=== PATIENT | male | born 1970 | race Caucasian/White ===

== ENCOUNTER 2016-08-05 13:52 | Emergency (ER) | payer OTHER ==
[~2016-08-05] VITALS: Ht 177.8 cm; Wt 130.0 kg
[~2016-08-05 13:52] MED LIST: ADVAIR 250/501 DISK IH; ALLERGY PLUS-S1 EACH PO; ALLERGY10 M1 PO; AMITRIPTYLINE H25 MG PO; ANESTACON10 ML MM; ANESTACON10 ML PR; ATROVENT 00.5 MG/2.5 IH; Ascorbic Acid,Ester- PO; BACLOFEN PUMP; BACLOFEN20 MG PO; BENADRYL25 MG PO; BISAC-EVAC10 MG RC; CEFTIN500 MG PO; COLACE100 MG PO; COLACE50 MG PO; COMPLETE MULTI1 EAC2 PO; CRANBERRY 4001 EAC1; CRANBERRY 4001 EAC1 PO; CRANBERRY PO; CRANBERRY400 M1 PO; CYMBALTA60 MG PO; Cipro PO; Colace PO; Cranberry Extract PO; Cranberry PO; DETROL1 MG PO; DITROPAN XL10 MG PO; DOCUSATE SODIU100 MG PO; Dulcolax PR; ENDOCET 10-3251 EACH PO; FIBER LAXATIVE625 M1 PO; FISH OIL CONC1 EACH PO; FISH OIL SOFTG1 EACH PO; FISH OIL300 MG PO; FISH OIL500 MG PO; FUROSEMIDE20 MG PO; Fish Oil PO; Flonase BOTH NARES; GABAPENTIN400 MG PO; GABAPENTIN800 MG PO; HIPREX1 GM PO; HUMALOG100 UNIT/1 SC; HUMALOG100 UNIT/2 SC; Habitrol,Nicoderm CQ TD; Keflex PO; LANTUS 10100 UNITS/; LANTUS 10100 UNITS/ SC; LANTUS 3 M100 UNITS1 SC; LASIX20 MG PO; LAXATIVE SUPPOS10 MG PR; LIORESAL I IT; LIORESAL5 MG; LIPITOR10 MG PO; LIPITOR20 MG PO; Lactinex,Floranex PO; Levaquin PO; Lioresal PO; Lotrimin Cream TP; MACROBID100 MG PO; MAGIC BULLET10 MG RC; MAGNESIUM DR64 M1 PO; METHENAMINE HIPP1 G1 PO; MUCINEX1200 MG PO; MULTI-VITAMIN1 EAC4 PO; MULTIVITAMIN1 EAC2 PO; Macrobid PO; Miralax, Glycolax PO; Mycostatin PO; NEURONTIN400 MG PO; NEURONTIN600 MG PO; NITROFURANTOIN100 M3 PO; NITROPASTE 2%1 GM TP; NOVOLOG PE100 UNITS/ SC; Neurontin PO; OMEPRAZOLE20 M2 PO; OMEPRAZOLE20 MG PO; OXYBUTYNIN CHLOR5 MG PO; OXYCODONE HCL20 MG PO; OXYCONTIN20 MG PO; Omega III EPA + DHA PO; OxyCONTIN PO; PERCOCET PO; PRILOSEC20 MG PO; PROAIR HFA8.5 GM IH; PROMETHAZINE HC25 M1 PO; PROVENTIL,2.5 MG/0.5 IH; Percocet 10/325,Endo PO; Proventil,Ventolin H IH; SPIRIVA1 INHALATI IH; TIZANIDINE HCL2 MG PO; TIZANIDINE HCL4 M1 PO; Theragran PO; VALIUM5 MG PO; VITAMIN C100 MG PO; VITAMIN C1000 M2 PO; VITAMIN C1000 MG PO; VITAMIN C2000 MG PO; VITAMIN C500 M1 PO; ZANAFLEX2 MG PO; ZYRTEC10 M3 PO; [UNRECOGNIZED DRUG - OTHER]; [UNRECOGNIZED DRUG - OTHER] PO; [UNRECOGNIZED DRUG - OTHER] TP; [UNRECOGNIZED DRUG - OTHER] TP; predniSONE PO
[2016-08-05 14:51] LABS: HEMATOCRIT 47.1 % (38.0-50.0); MCH 30.4 PG (29.0-34.0); MCHC 32.7 G/DL (30.0-36.0); MCV 92.9 FL (86-99); MEAN PLAT.VOLUME 9.1 uM^3 (9.0-12.4); PLATELET COUNT 228 K/uL (156-360); RBC DIS.WIDTH-CV 13.3 % (11.8-14.6); RBC DIS.WIDTH-SD 45.1 % (39-53); RED BLOOD COUNT 5.07 M/uL (4.00-5.50); WHITE BLOOD COUNT 9.1 K/uL (4.1-10.2)
[2016-08-05 15:02] LABS: CHLORIDE 102 mEq/L (99-109); POTASSIUM 4.1 mEq/L (3.7-5.4); SODIUM 138 mEq/L (136-147)
[2016-08-05 15:04] LABS: GLUCOSE 153 mg/dL (70-99)
[2016-08-05 15:06] LABS: ANION GAP 12 MEQ/L (2-14)
[2016-08-05 15:08] LABS: GFR ESTIMATE (CALCULATED) > 59 mL/min/
[2016-08-05 15:09] LABS: UREA NITROGEN (BUN) 8 mg/dL (9-23)
[2016-08-05 15:15] LABS: TROP-I INTERPRETATION NEGATIVE; TROPONIN-I < 0.01 ng/mL (0.0-0.30)
[2016-08-05] MEDS ORDERED: AZITHROMYCIN250 MG1 PO (16:03)
[2016-08-05] MEDS ORDERED: PREDNISONE50 MG PO (16:03)
[2016-08-05 16:24] VITALS: BP 106/88
== END 2016-08-05 16:27 | disposition home or self-care (01) ==
LOC: EME 13:52
DX: J44.0 Chronic obstructive pulmonary disease with (acute) lower respiratory infection (principal); J20.9 Acute bronchitis, unspecified; J44.1 Chronic obstructive pulmonary disease with (acute) exacerbation; E11.9 Type 2 diabetes mellitus without complications; K21.9 Gastro-esophageal reflux disease without esophagitis; Z79.4 Long term (current) use of insulin; Z79.891 Long term (current) use of opiate analgesic; G90.4 Autonomic dysreflexia; G37.3 Acute transverse myelitis in demyelinating disease of central nervous system; F17.200 Nicotine dependence, unspecified, uncomplicated
CPT/HCPCS: 71020; 80048; 84484; 85027; 93005; 94640; 99281; 99284; J7512

== ENCOUNTER 2016-08-14 16:07 | Inpatient (IN) | payer OTHER ==
[~2016-08-14] VITALS: Ht 177.8 cm; Wt 146.5 kg
[~2016-08-14 16:07] MED LIST changes: +AZITHROMYCIN250 MG1 PO; +PREDNISONE50 MG PO
[2016-08-14 17:58] LABS: BASOPHIL COUNT 0.1 K/uL (0-0.1); EOSINOPHIL COUNT 0.1 K/uL (0-0.3); IMMATURE GRANULOCYTE (%) 0.6 % (0.0-0.7); IMMATURE GRANULOCYTE COUNT 0.1 K/uL; INSTRUMENT ABS NEUTROPHIL CT 9.6 K/uL; LYMPHOCYTE COUNT 1.9 K/uL (1.0-2.8); MCH 30.3 PG (29.0-34.0); MCHC 32.1 G/DL (30.0-36.0); MCV 94.2 FL (86-99); MEAN PLAT.VOLUME 8.6 uM^3 (9.0-12.4); MONOCYTE (%) 5.2 % (3-12); MONOCYTE COUNT 0.7 K/uL (0-0.8); NEUTROPHIL (%) 77.2 % (45-76); NEUTROPHIL COUNT 9.6 K/uL (1.8-6.4); PLATELET COUNT 260 K/uL (156-360); RBC DIS.WIDTH-CV 13.2 % (11.8-14.6); RBC DIS.WIDTH-SD 45.7 % (39-53); RED BLOOD COUNT 4.99 M/uL (4.00-5.50); WHITE BLOOD COUNT 12.4 K/uL (4.1-10.2)
[2016-08-14 18:05] LABS: CHLORIDE 99 mEq/L (99-109); POTASSIUM 3.9 mEq/L (3.7-5.4)
[2016-08-14 18:06] LABS: SODIUM 138 mEq/L (136-147)
[2016-08-14 18:08] LABS: GLUCOSE 178 mg/dL (70-99)
[2016-08-14 18:09] LABS: ANION GAP 9 MEQ/L (2-14)
[2016-08-14 18:10] LABS: TOTAL BILIRUBIN 0.9 mg/dL (0.0-1.0)
[2016-08-14 18:11] LABS: ALKALINE PHOSPHATASE 77 IU/L (3-129); GFR ESTIMATE (CALCULATED) > 59 mL/min/
[2016-08-14 18:13] LABS: UREA NITROGEN (BUN) 8 mg/dL (9-23)
[2016-08-14] MEDS ORDERED: TOPICAINE 5113 GM TP (18:34)
[2016-08-14] MEDS ORDERED: ZANAFLEX4 M1 PO (18:37)
[2016-08-14 23:29] VITALS: BP 130/71
[2016-08-15] VITALS (20 sets, daily range): BP systolic 69–177; BP diastolic 53–91
[2016-08-15 00:16] LABS: POINT-OF-CARE METER ID UU13113725
[2016-08-15 04:24] LABS: BASE EXCESS 4.9 mEq/L (-3 to +3); CARBOXY HGB 3.7 % (0-5); METHEMOGLOBIN 1.2 % (0-1.5); PO2 74 mm Hg (80-100)
[2016-08-15 04:25] LABS: BICARBONATE 35.5 mEq/L (22-26); COMMENTS - BLOOD GASES C+A+; DEVICE NRBM; O2 FLOW 15 L/MIN; PCO2 81 mm Hg (35-45); SITE RR; pH 7.25 (7.35-7.45)
[2016-08-15 05:27] LABS: BASE EXCESS 6.2 mEq/L (-3 to +3); BICARBONATE 34.5 mEq/L (22-26); CARBOXY HGB 3.3 % (0-5); COMMENTS - BLOOD GASES C+; DEVICE NIV; FI02 80 %; METHEMOGLOBIN 1.2 % (0-1.5); MODE NIV; PCO2 64 mm Hg (35-45); PEEP 10 CM/H20; PO2 56 mm Hg (80-100); PRES. SUPPORT 20 CM/H2O; SITE RR; TOTAL RESP RATE 25 resp/min; pH 7.34 (7.35-7.45)
[2016-08-15 06:26] LABS: METH RESISTANT S AUREUS PCR NEGATIVE (NEGATIVE)
[2016-08-15 06:28] LABS: PROBE CHECK PASS; SPECIMEN PROCESSING CONTROL PASS
[2016-08-15 07:02] LABS: EOSINOPHIL (%) 0 % (0-5); HEMATOCRIT 44.5 % (38.0-50.0); IMMATURE GRANULOCYTE (%) 0.4 % (0.0-0.7); IMMATURE GRANULOCYTE COUNT 0.1 K/uL; INSTRUMENT ABS NEUTROPHIL CT 12.7 K/uL; LYMPHOCYTE COUNT 0.8 K/uL (1.0-2.8); MCHC 31.5 G/DL (30.0-36.0); MCV 95.3 FL (86-99); MONOCYTE (%) 1.9 % (3-12); MONOCYTE COUNT 0.3 K/uL (0-0.8); NEUTROPHIL (%) 91.5 % (45-76); NEUTROPHIL COUNT 12.7 K/uL (1.8-6.4); PLATELET COUNT 238 K/uL (156-360); RBC DIS.WIDTH-CV 13.4 % (11.8-14.6); RBC DIS.WIDTH-SD 46.7 % (39-53); RED BLOOD COUNT 4.67 M/uL (4.00-5.50); WHITE BLOOD COUNT 13.9 K/uL (4.1-10.2)
[2016-08-15 07:33] LABS: ANION GAP 5 MEQ/L (2-14); CHLORIDE 100 MEQ/L (99-109); GFR ESTIMATE (CALCULATED) > 59 mL/min/; SAMPLE HEMOLYSIS CHECK 0; SAMPLE ICTERIC CHECK 0; SAMPLE LIPEMIA CHECK 0; SODIUM 138 MEQ/L (136-147); UREA NITROGEN (BUN) 8 mg/dL (9-23)
[2016-08-15 07:37] LABS: Estimated Average Glucose 186 mg/dL (70-123); HEMOGLOBIN A1c (GLYCOHEMOGLOB) 8.1 % HGB (Below 5.7)
[2016-08-15 07:38] LABS: GLUCOSE 306 mg/dL (70-99); POTASSIUM 4.9 MEQ/L (3.7-5.4)
[2016-08-15 07:56] LABS: ADD MIUA? YES; BILIRUBIN NEGATIVE; BLOOD NEGATIVE; COLOR YELLOW ((YELLOW)); GLUCOSE (STRIP) >=500; KETONES 20; LEUKOCYTES MODERATE; NITRITE NEGATIVE; PROTEIN (STRIP) NEGATIVE; UROBILINOGEN 0.2 MG/DL (0.2-1.0)
[2016-08-15 08:47] LABS: RED BLOOD CELLS TNTC /HPF (0-5)
[2016-08-15 08:49] LABS: EPITHELIAL CELLS NONE SEEN /HPF; MUCUS NONE SEEN /LPF; UCUL ADDED? NO
[2016-08-15 08:57] LABS: BASE EXCESS 8.1 mEq/L (-3 to +3); BICARBONATE 35.8 mEq/L (22-26); CARBOXY HGB 2.6 % (0-5); METHEMOGLOBIN 1.3 % (0-1.5); PCO2 62 mm Hg (35-45); pH 7.37 (7.35-7.45)
[2016-08-15 08:58] LABS: COMMENTS - BLOOD GASES A+C+; DEVICE NIV; FI02 100 %; PO2 86 mm Hg (80-100); SITE RR
[2016-08-15 08:59] LABS: PEEP 10 CM/H20; PRES. SUPPORT 20 CM/H2O; TOTAL RESP RATE 21 resp/min
[2016-08-15 11:09] LABS: POINT-OF-CARE METER ID UU13113803
[2016-08-15 17:06] LABS: POINT-OF-CARE METER ID UU14174217
[2016-08-15 21:59] LABS: POINT-OF-CARE METER ID UU14162636
[2016-08-16] VITALS (19 sets, daily range): BP systolic 101–179; BP diastolic 51–98
[2016-08-16 08:27] LABS: POINT-OF-CARE METER ID UU13113731
[2016-08-16 08:35] LABS: INTERNAL CONTROL VALID? YES
[2016-08-16 10:40] LABS: ANION GAP 10 MEQ/L (2-14); CHLORIDE 98 MEQ/L (99-109); GFR ESTIMATE (CALCULATED) > 59 mL/min/; GLUCOSE 273 mg/dL (70-99); POTASSIUM 4.8 MEQ/L (3.7-5.4); SODIUM 136 MEQ/L (136-147); UREA NITROGEN (BUN) 12 mg/dL (9-23)
[2016-08-16 12:01] LABS: POINT-OF-CARE METER ID UU13113731
[2016-08-16 12:53] LABS: EOSINOPHIL (%) 0 % (0-5); HEMATOCRIT 45.9 % (38.0-50.0); IMMATURE GRANULOCYTE (%) 0.5 % (0.0-0.7); IMMATURE GRANULOCYTE COUNT 0.1 K/uL; INSTRUMENT ABS NEUTROPHIL CT 13.4 K/uL; LYMPHOCYTE COUNT 1.4 K/uL (1.0-2.8); MCH 29.7 PG (29.0-34.0); MCHC 31.8 G/DL (30.0-36.0); MCV 93.3 FL (86-99); MEAN PLAT.VOLUME 8.8 uM^3 (9.0-12.4); MONOCYTE (%) 6.2 % (3-12); NEUTROPHIL (%) 84.5 % (45-76); NEUTROPHIL COUNT 13.4 K/uL (1.8-6.4); PLATELET COUNT 269 K/uL (156-360); RBC DIS.WIDTH-CV 13.3 % (11.8-14.6); RBC DIS.WIDTH-SD 45.1 % (39-53); RED BLOOD COUNT 4.92 M/uL (4.00-5.50); WHITE BLOOD COUNT 15.9 K/uL (4.1-10.2)
[2016-08-16 13:34] LABS: ANION GAP 9 MEQ/L (2-14); CHLORIDE 96 MEQ/L (99-109); GFR ESTIMATE (CALCULATED) > 59 mL/min/; GLUCOSE 251 mg/dL (70-99); MAGNESIUM 1.9 mg/dl (1.3-2.7); POTASSIUM 4.6 MEQ/L (3.7-5.4); SAMPLE HEMOLYSIS CHECK 0; SAMPLE ICTERIC CHECK 0; SAMPLE LIPEMIA CHECK 0; SODIUM 136 MEQ/L (136-147); UREA NITROGEN (BUN) 13 mg/dL (9-23)
[2016-08-16 16:42] LABS: POINT-OF-CARE METER ID UU13113731
[2016-08-16 22:19] LABS: POINT-OF-CARE METER ID UU13113731
[2016-08-17] VITALS (11 sets, daily range): BP systolic 120–165; BP diastolic 55–92
[2016-08-17 06:46] LABS: EOSINOPHIL (%) 0 % (0-5); HEMATOCRIT 42.3 % (38.0-50.0); IMMATURE GRANULOCYTE (%) 0.6 % (0.0-0.7); IMMATURE GRANULOCYTE COUNT 0.1 K/uL; INSTRUMENT ABS NEUTROPHIL CT 13.6 K/uL; LYMPHOCYTE COUNT 1.3 K/uL (1.0-2.8); MCH 30.2 PG (29.0-34.0); MCHC 32.6 G/DL (30.0-36.0); MCV 92.6 FL (86-99); MONOCYTE (%) 5.7 % (3-12); MONOCYTE COUNT 0.9 K/uL (0-0.8); NEUTROPHIL (%) 85.5 % (45-76); NEUTROPHIL COUNT 13.6 K/uL (1.8-6.4); PLATELET COUNT 259 K/uL (156-360); RBC DIS.WIDTH-CV 13.2 % (11.8-14.6); RED BLOOD COUNT 4.57 M/uL (4.00-5.50); WHITE BLOOD COUNT 15.9 K/uL (4.1-10.2)
[2016-08-17 07:08] LABS: ANION GAP 8 MEQ/L (2-14); CHLORIDE 95 MEQ/L (99-109); GFR ESTIMATE (CALCULATED) > 59 mL/min/; GLUCOSE 256 mg/dL (70-99); POTASSIUM 4.2 MEQ/L (3.7-5.4); SAMPLE HEMOLYSIS CHECK 0; SAMPLE ICTERIC CHECK 0; SAMPLE LIPEMIA CHECK 0; SODIUM 136 MEQ/L (136-147); UREA NITROGEN (BUN) 16 mg/dL (9-23)
[2016-08-17 11:24] LABS: POINT-OF-CARE METER ID UU13113731
[2016-08-17 15:41] LABS: POINT-OF-CARE METER ID UU13113731
[2016-08-17 22:00] LABS: POINT-OF-CARE METER ID UU14162636
[2016-08-18] VITALS (9 sets, daily range): BP systolic 130–165; BP diastolic 70–90
[2016-08-18 05:53] LABS: EOSINOPHIL (%) 0 % (0-5); HEMATOCRIT 42.4 % (38.0-50.0); IMMATURE GRANULOCYTE (%) 0.5 % (0.0-0.7); IMMATURE GRANULOCYTE COUNT 0.1 K/uL; INSTRUMENT ABS NEUTROPHIL CT 14.4 K/uL; LYMPHOCYTE COUNT 1.6 K/uL (1.0-2.8); MCH 29.9 PG (29.0-34.0); MCHC 32.5 G/DL (30.0-36.0); MCV 91.8 FL (86-99); MEAN PLAT.VOLUME 8.7 uM^3 (9.0-12.4); MONOCYTE (%) 6.6 % (3-12); MONOCYTE COUNT 1.1 K/uL (0-0.8); NEUTROPHIL (%) 83.7 % (45-76); NEUTROPHIL COUNT 14.4 K/uL (1.8-6.4); PLATELET COUNT 239 K/uL (156-360); RBC DIS.WIDTH-SD 43.8 % (39-53); RED BLOOD COUNT 4.62 M/uL (4.00-5.50); WHITE BLOOD COUNT 17.2 K/uL (4.1-10.2)
[2016-08-18 06:21] LABS: ANION GAP 7 MEQ/L (2-14); CHLORIDE 95 MEQ/L (99-109); GFR ESTIMATE (CALCULATED) > 59 mL/min/; GLUCOSE 333 mg/dL (70-99); SAMPLE HEMOLYSIS CHECK 2; SAMPLE ICTERIC CHECK 0; SAMPLE LIPEMIA CHECK 0; SODIUM 134 MEQ/L (136-147); UREA NITROGEN (BUN) 24 mg/dL (9-23)
[2016-08-18 11:42] LABS: POINT-OF-CARE METER ID UU13113731
[2016-08-18 17:02] LABS: POINT-OF-CARE METER ID UU14162636
[2016-08-18 22:13] LABS: POINT-OF-CARE METER ID UU13113731
[2016-08-19] VITALS (7 sets, daily range): BP systolic 100–170; BP diastolic 47–94
[2016-08-19 06:09] LABS: EOSINOPHIL (%) 0 % (0-5); HEMATOCRIT 42.8 % (38.0-50.0); IMMATURE GRANULOCYTE (%) 0.5 % (0.0-0.7); IMMATURE GRANULOCYTE COUNT 0.1 K/uL; LYMPHOCYTE COUNT 1.5 K/uL (1.0-2.8); MCH 29.8 PG (29.0-34.0); MCHC 32.2 G/DL (30.0-36.0); MCV 92.4 FL (86-99); MEAN PLAT.VOLUME 9.1 uM^3 (9.0-12.4); MONOCYTE (%) 6.5 % (3-12); MONOCYTE COUNT 1.2 K/uL (0-0.8); NEUTROPHIL (%) 84.5 % (45-76); PLATELET COUNT 220 K/uL (156-360); RBC DIS.WIDTH-CV 13.1 % (11.8-14.6); RBC DIS.WIDTH-SD 44.2 % (39-53); RED BLOOD COUNT 4.63 M/uL (4.00-5.50); WHITE BLOOD COUNT 17.8 K/uL (4.1-10.2)
[2016-08-19 06:29] LABS: ANION GAP 7 MEQ/L (2-14); CHLORIDE 95 MEQ/L (99-109); GFR ESTIMATE (CALCULATED) > 59 mL/min/; GLUCOSE 387 mg/dL (70-99); MAGNESIUM 1.9 mg/dl (1.3-2.7); POTASSIUM 4.5 MEQ/L (3.7-5.4); SAMPLE HEMOLYSIS CHECK 0; SAMPLE ICTERIC CHECK 0; SAMPLE LIPEMIA CHECK 0; SODIUM 135 MEQ/L (136-147); UREA NITROGEN (BUN) 25 mg/dL (9-23)
[2016-08-19 15:32] LABS: POINT-OF-CARE METER ID UU13113725
[2016-08-20 05:38] VITALS: BP 132/64
[2016-08-20 06:19] LABS: EOSINOPHIL (%) 0.2 % (0-5); HEMATOCRIT 43.4 % (38.0-50.0); IMMATURE GRANULOCYTE (%) 0.5 % (0.0-0.7); IMMATURE GRANULOCYTE COUNT 0.1 K/uL; INSTRUMENT ABS NEUTROPHIL CT 11.9 K/uL; LYMPHOCYTE COUNT 3.2 K/uL (1.0-2.8); MCHC 32.9 G/DL (30.0-36.0); MEAN PLAT.VOLUME 9.2 uM^3 (9.0-12.4); MONOCYTE (%) 6.9 % (3-12); MONOCYTE COUNT 1.1 K/uL (0-0.8); NEUTROPHIL (%) 72.9 % (45-76); NEUTROPHIL COUNT 11.9 K/uL (1.8-6.4); PLATELET COUNT 229 K/uL (156-360); RBC DIS.WIDTH-CV 12.9 % (11.8-14.6); RBC DIS.WIDTH-SD 43.4 % (39-53); RED BLOOD COUNT 4.77 M/uL (4.00-5.50); WHITE BLOOD COUNT 16.4 K/uL (4.1-10.2)
[2016-08-20 06:41] LABS: ALKALINE PHOSPHATASE 63 IU/L (3-129); ANION GAP 8 MEQ/L (2-14); CHLORIDE 95 MEQ/L (99-109); GFR ESTIMATE (CALCULATED) > 59 mL/min/; GLUCOSE 296 mg/dL (70-99); MAGNESIUM 1.9 mg/dl (1.3-2.7); POTASSIUM 3.6 MEQ/L (3.7-5.4); SAMPLE HEMOLYSIS CHECK 0; SAMPLE ICTERIC CHECK 0; SAMPLE LIPEMIA CHECK 0; SODIUM 135 MEQ/L (136-147); TOTAL BILIRUBIN 0.6 MG/DL (0.0-1.0); UREA NITROGEN (BUN) 19 mg/dL (9-23)
[2016-08-20 07:20] VITALS: BP 161/87
[2016-08-20 12:09] LABS: POINT-OF-CARE METER ID UU13113725
[2016-08-20 15:14] VITALS: BP 98/52
[2016-08-20 19:42] VITALS: BP 134/67
[2016-08-20 21:09] LABS: POINT-OF-CARE METER ID UU13113725
[2016-08-20 23:56] VITALS: BP 128/79
[2016-08-21 03:39] VITALS: BP 138/73
[2016-08-21 06:50] LABS: EOSINOPHIL (%) 0.7 % (0-5); EOSINOPHIL COUNT 0.1 K/uL (0-0.3); HEMATOCRIT 44.1 % (38.0-50.0); IMMATURE GRANULOCYTE (%) 0.5 % (0.0-0.7); IMMATURE GRANULOCYTE COUNT 0.1 K/uL; INSTRUMENT ABS NEUTROPHIL CT 13.2 K/uL; LYMPHOCYTE COUNT 3.3 K/uL (1.0-2.8); MCHC 32.9 G/DL (30.0-36.0); MCV 91.3 FL (86-99); MONOCYTE (%) 6.1 % (3-12); MONOCYTE COUNT 1.1 K/uL (0-0.8); NEUTROPHIL (%) 74.1 % (45-76); NEUTROPHIL COUNT 13.2 K/uL (1.8-6.4); NRBC (%) 0.2 /100 WBC (0-0); RBC DIS.WIDTH-CV 12.9 % (11.8-14.6); RBC DIS.WIDTH-SD 43.2 % (39-53); RED BLOOD COUNT 4.83 M/uL (4.00-5.50); WHITE BLOOD COUNT 17.8 K/uL (4.1-10.2)
[2016-08-21 07:36] LABS: ANION GAP 9 MEQ/L (2-14); CHLORIDE 98 MEQ/L (99-109); GFR ESTIMATE (CALCULATED) > 59 mL/min/; GLUCOSE 275 mg/dL (70-99); MAGNESIUM 2.1 mg/dl (1.3-2.7); SAMPLE HEMOLYSIS CHECK 1; SAMPLE ICTERIC CHECK 0; SAMPLE LIPEMIA CHECK 0; SODIUM 135 MEQ/L (136-147); UREA NITROGEN (BUN) 20 mg/dL (9-23)
[2016-08-21 07:39] LABS: POTASSIUM 4.7 MEQ/L (3.7-5.4)
[2016-08-21 08:10] LABS: HEMATOLOGY COMMENT 1 SN; PLAT.SUFFICIENCY ADEQUATE; PLATELET COUNT 236 K/uL (156-360)
[2016-08-21 08:30] VITALS: BP 131/68
[2016-08-21] MEDS ORDERED: PREDNISONE10 MG PO (11:21)
[2016-08-21 11:44] LABS: POINT-OF-CARE METER ID UU13113725
== END 2016-08-21 14:41 | disposition home or self-care (01) | DRG 190 ==
LOC: EME 16:07 → EDOF 20:58 → 5EAST 20:58 → 4WEST 20:58 → EDOF 20:58 → 5EAST 23:07 → 4WEST 08-15 04:50 → 5EAST 08-19 15:05
PROVIDERS: Emergency Medicine; Hospitalist; Internal Medicine; Internal Medicine Nephrology; Obstetrics & Gynecology
DX: J44.0 Chronic obstructive pulmonary disease with (acute) lower respiratory infection (principal); J96.01 Acute respiratory failure with hypoxia; G82.52 Quadriplegia, C1-C4 incomplete; J18.9 Pneumonia, unspecified organism; J90 Pleural effusion, not elsewhere classified; G37.3 Acute transverse myelitis in demyelinating disease of central nervous system; J44.1 Chronic obstructive pulmonary disease with (acute) exacerbation; E11.65 Type 2 diabetes mellitus with hyperglycemia; I10 Essential (primary) hypertension; E66.9 Obesity, unspecified; D72.829 Elevated white blood cell count, unspecified; T38.0X5A Adverse effect of glucocorticoids and synthetic analogues, initial encounter; K21.9 Gastro-esophageal reflux disease without esophagitis; N31.9 Neuromuscular dysfunction of bladder, unspecified; Z87.440 Personal history of urinary (tract) infections; Z87.01 Personal history of pneumonia (recurrent); F17.210 Nicotine dependence, cigarettes, uncomplicated; G89.29 Other chronic pain; Z79.4 Long term (current) use of insulin; Z99.3 Dependence on wheelchair; G90.4 Autonomic dysreflexia
CPT/HCPCS: 31720; 36600; 71010; 71275; 80048; 80048 91; 80053; 80069; 80200; 80202; 81003; 82803; 82948; 83036; 83605; 83735; 84100; 84145 90; 85025; 85027; 87040; 87070; 87205; 87449; 87641; 94002; 94003; 94010; 94640; 94640 76; 94660; 94667; 94668; 94760; 94799; 99202; 99281; 99285; C9113; J1650; J1815; J1940; J1956; J2920; J3260; J3370; J7030; J7040; J7050; J7120; J7512; J7608; S0073

== ENCOUNTER 2017-09-20 10:20 | Emergency (ER) | payer OTHER ==
[~2017-09-20] VITALS: Ht 177.8 cm; Wt 143.0 kg
[~2017-09-20 10:20] MED LIST changes: +PREDNISONE10 MG PO; +TOPICAINE 5113 GM TP; +ZANAFLEX4 M1 PO
[2017-09-20 10:50] LABS: BASOPHIL (%) 0.5 % (0-1); BASOPHIL COUNT 0.1 K/uL (0-0.1); EOSINOPHIL (%) 0.9 % (0-5); EOSINOPHIL COUNT 0.1 K/uL (0-0.3); HEMATOCRIT 39.4 % (38.0-50.0); HEMOGLOBIN 13.5 G/DL (12.5-16.6); IMMATURE GRANULOCYTE (%) 0.8 % (0.0-0.7); LYMPHOCYTE (%) 19.9 % (15-42); LYMPHOCYTE COUNT 2.6 K/uL (1.0-2.8); MCH 30.3 PG (29.0-34.0); MCHC 34.3 G/DL (30.0-36.0); MCV 88.5 FL (86-99); MONOCYTE (%) 6.2 % (3-12); MONOCYTE COUNT 0.8 K/uL (0-0.8); NEUTROPHIL (%) 71.7 % (45-76); NEUTROPHIL COUNT 9.4 K/uL (1.8-6.4); PLATELET COUNT 241 K/uL (156-360); RBC DIS.WIDTH-CV 12.8 % (11.8-14.6); RBC DIS.WIDTH-SD 41.3 % (39-53); RED BLOOD COUNT 4.45 M/uL (4.00-5.50); WHITE BLOOD COUNT 13.2 K/uL (4.1-10.2)
[2017-09-20 10:58] LABS: INTER. NORMALIZED RATIO 1.1
[2017-09-20 11:00] LABS: CHLORIDE 103 mEq/L (99-109); SODIUM 137 mEq/L (136-147)
[2017-09-20 11:01] LABS: GLUCOSE 214 mg/dL (70-99)
[2017-09-20 11:05] LABS: CREATININE 0.7 mg/dL (0.6-1.3); GFR ESTIMATE (CALCULATED) > 59 mL/min/ (58.99-99999)
[2017-09-20 11:06] LABS: UREA NITROGEN (BUN) 9 mg/dL (9-23)
[2017-09-20 13:40] VITALS: BP 162/91
== END 2017-09-20 13:40 | disposition home or self-care (01) ==
LOC: EME → EDBD 10:20 → EME 10:20
PROVIDERS: Emergency Medicine
DX: N99.820 Postprocedural hemorrhage of a genitourinary system organ or structure following a genitourinary system procedure (principal); Z90.79 Acquired absence of other genital organ(s); E11.9 Type 2 diabetes mellitus without complications; J44.9 Chronic obstructive pulmonary disease, unspecified; K21.9 Gastro-esophageal reflux disease without esophagitis; G82.50 Quadriplegia, unspecified; G90.4 Autonomic dysreflexia; G37.3 Acute transverse myelitis in demyelinating disease of central nervous system; F32.9 Major depressive disorder, single episode, unspecified; F17.200 Nicotine dependence, unspecified, uncomplicated; Z79.4 Long term (current) use of insulin; Z91.040 Latex allergy status; Z88.5 Allergy status to narcotic agent; Z88.0 Allergy status to penicillin; Z88.1 Allergy status to other antibiotic agents
CPT/HCPCS: 80048; 82948; 85025; 85610; 99281; 99285